=== PATIENT | female | born 1970 | race Caucasian/White ===

== ENCOUNTER 2021-03-05 23:00 | Emergency (ER) | payer MEDICAID, SELFPAY ==
--- NOTE | ~2021-03-05 | CT_ITS ---
EXAMINATION: CT ABDOMEN AND PELVIS WITHOUT CONTRAST CLINICAL INFORMATION: Bilateral flank pain. Hematuria. COMPARISON: None TECHNIQUE: Multidetector volumetric imaging was performed from the superior aspect of the liver through the pubic symphysis. Sagittal and coronal reformatted images were obtained on the technologist's workstation. This CT examination was performed using dose optimization techniques as appropriate, variously including the following: *Automated exposure control *Adjustment of mA and/or kV according to patient size (this includes techniques or standardized protocols for targeted exams where dose is matched to indication/reason for exam; i.e. extremities or head) *Use of iterative reconstruction technique DLP: 614 mGy-cm FINDINGS: LUNG BASES: The visualized lung bases are unremarkable. LIVER, GALLBLADDER, AND BILIARY TREE: The liver is normal in size, shape, and attenuation. No focal hepatic lesion or biliary ductal dilatation is present. Cholecystectomy. PANCREAS: Unremarkable. SPLEEN: Unremarkable. ADRENAL GLANDS: Unremarkable. KIDNEYS AND URETERS: The kidneys are normal in size, shape, and attenuation. No hydronephrosis, hydroureter, or calculi seen. No perinephric stranding. BLADDER: Unremarkable. GASTROINTESTINAL TRACT: Normally distended stomach without wall thickening. Radiopaque density along the greater curvature. Normal caliber small bowel. There is no obstruction. No colonic wall thickening or acute inflammatory change. No free air or free fluid. ABDOMINAL WALL: No significant hernia is appreciated. LYMPH NODES: Normal. VASCULAR: Unremarkable. PELVIC VISCERA: The uterus and adnexa are unremarkable. OSSEOUS STRUCTURES: No acute or suspicious osseous abnormality. Posterior fusion at L5-S1. CT/CT abdomen pelvis wo con IMPRESSION: No acute finding of the abdomen or pelvis. No acute inflammatory change. No hydronephrosis or nephrolithiasis.
[2021-03-05 23:07] VITALS: BP 131/67; PULSE 84; RESP 18; TEMP 37; O2SAT 100; BMI 25.0
[2021-03-05 23:34] LABS: Appearance Urine CLEAR; Color Urine YELLOW; Glucose Urine UA NEG (NEG); Leukocyte Esterase Urine NEG (NEG); Nitrite Urine NEG (NEG); Specific Gravity - Urine 1.015 (1.005-1.025); UACC Culture Trigger NO; Urine Blood NEG (NEG); Urine Ketones NEG (NEG); Urine Protein NEG (NEG-TRACE)
[2021-03-06] VITALS (8 sets, daily range): BP systolic 113–125; BP diastolic 61–75; PULSE 60–70; RESP 16–18; O2SAT 100
--- NOTE | 2021-03-06 00:38 | ED_ITS ---
HPI - General Adult General Chief complaint: Back Pain/Injury Stated complaint: Flank pain Time Seen by Provider: 03/06/21 00:20 Source: patient and family ( , Bakari) Mode of arrival: ambulatory Limitations: no limitations History of Present Illness HPI narrative: 50-year-old female who presents emergency department for evaluation of lower back pain and lower abdominal pain x2 weeks. The patient has a history of chronic back pain and states that she had an L4-L5 disc surgery approximately 4 years prior. Since that time she has had persistent back pain and has been in pain management. She states she was taking morphine 15 mg twice a day is being weaned off morphine by her pain management clinic. She states that over the past 2 weeks she has had increased lower back pain. She states the pain got suddenly worse 2 weeks prior, she denies any injury. She states she has an intermittent throbbing lower back pain which is 9/10 at its worst, the pain is worse with movement. She states that she noted an episode of bloody urine 1 week prior and 2 days prior. She denied frequency urgency or dysuria. She denied fever or chills. She has had associated nausea with her pain but denied any vomiting. The patient states the pain get worse this evening and was 9 of 10, therefore she came to the emergency department for evaluation. Related Data Allergies Allergy/AdvReac Type Severity Reaction Status Date / Time No Known Allergies Allergy Verified 03/05/21 23:06 [No Known Allergies*] Review of Systems Review of Systems: Yes all other systems are reviewed and are negative [facility] Past Medical History [facility] Narrative: Past medical history: Chronic back pain. Past surgical history: Cholecystectomy, L4-L5 disc surgery 4 years prior. Social history: She denies tobacco use, she occasionally drinks alcohol. She denies drug use. Medical History (Updated 03/06/21 @ 02:40 by Domenico Hughes MD) Kidney stone Scoliosis Spinal stenosis Surgical History (Updated 03/05/21 @ 23:08 by Karine Dacosta) History of cholecystectomy Social History Social History Patient Tobacco Use Status: Former Tobacco user Use of substances other than those prescribed or required for medical reasons: No Advance Directives: No Advance Directives Information Provided: No Physical Exam Vital Signs: Vital Signs: Last Vital Signs Temp 98.6 F 03/05/21 23:07 Pulse 61 03/06/21 02:00 Resp 16 03/06/21 02:08 BP 118/65 03/06/21 02:00 Pulse Ox 100 03/06/21 02:00 Body Mass Index 25.0 Const: General: cooperative and healthy appearing Orientat ion/consciousness: oriented to person and oriented to place Limitations: no limitations HENMT: Head: Yes normal to inspection, Yes normocephalic and Yes atraumatic Ears: external ears normal General nose exam: Normal external nose present Face and sinus: Yes normal facial exam Mouth: Normal oral and palatal mucosa present Throat: Yes posterior oropharynx normal Eyes: Periorbital: periorbital findings normal Eyelids: Yes eyelids normal Conjunctivae: conjunctivae normal Sclerae: sclerae normal Corneas: corneas normal Pupils: Equal, round and reactive pupils present Direct Ophthalmoscopy: normal light reflex Neck: Neck: Yes full ROM, Yes no lymphadenopathy, Yes no meningeal signs, Yes trachea midline and Yes supple Chest: Chest palpation & inspection: normal inspection of the chest and normal palpation of entire chest wall Resp: Effort & Inspection: normal respiratory effort and able to speak in complete sentences Auscultation: clear to auscultation bilaterally Cardio: Rate: regular rate Rhythm: regular rhythm Heart sounds: S1 normal heart sound present, S2 normal heart sound present and no murmurs GI: Inspection: Yes normal to inspection Palpation (GI): Soft to palpation, Tenderness to palpation present (GI) in the LUQ ( moderate) and in the RUQ ( moderate), no guarding, not rigid and No hepatosplenomegaly present Back/Spine/Pelvis: Other: Patient has tenderness with palpation of her lower thoracic to her lumbar spine, she also has tenderness with palpation of the paraspinal muscles in these areas. There is no erythema, increased warmth or soft tissue swelling noted of the patient's back. Skin: Lesions: no lesions Rashes: no rashes Wounds: no wounds Neuro: General: oriented to person, oriented to place and no meningeal signs Cranial nerves: Yes CN's II-XII intact bilaterally and Yes Equal, round and reactive pupils present Cognition (Neuro): normal cognition Motor exam (neuro): 5/5 motor strength present throughout Extrem: General: Yes normal to inspection and Yes full ROM Psych: Appearance: well kempt Mental Status: mental status grossly normal Speech and movement: Normal speech and movement present Affect: normal affect Attitude: cooperative Thought process: Normal thought process present Course Course Course Narrative: 50-year-old female with a history of chronic lower back pain with an L4-L5 disc surgery 4 years prior, a pain management and is being weaned off her morphine, who presents to the emergency department for 2 weeks of increased lower back pain, hematuria 1 week prior and 2 days prior. Vital signs were normal.Physical examination revealed tenderness with palpation of her lower thoracic and lumbar spine with tenderness with palpation of the paraspinal muscles in these areas as well. I did order laboratory evaluation to include a CBC, CMP, lipase, urinalysis , urine and CT scan of the abdomen pelvis without IV contrast. Patient will be treated with morphine 4 mg IV and normal saline x1 L. 0236: The patient required 2 more doses of morphine 4 mg IV to help relieve her pain. The patient's laboratory evaluation was unremarkable. CT scan of the abdomen pelvis did not reveal a clear cause for pain. I did discuss this with the patient. Patient's pain is most likely secondary to her chronic back pain and the fact that she is being tapered off her morphine. The patient was advised to follow-up with her pain management clinic for further treatment. The patient was given verbal and printed instructions prior to discharge. The patient was advised to follow-up with their PCP in 2 days and to return to the emergency department if their symptoms get worse or if they develop any new symptoms that are concerning to them Medical Decision Making Lab Data Result diagrams: 03/06/21 01:18 03/06/21 01:18 Labs: Lab Results 03/05/21 03/06/21 03/06/21 Range/Units 23:22 01:18 01:18 WBC 8.9 (4.8-10.8) X10*3/uL RBC 4.35 (4.20-5.50) X10*6/uL Hgb 11.1 L (12.0-16.0) g/dl Hct 36.6 L (37-47) % MCV 84.1 (80-98) fL MCH 25.5 L (27.0-33.0) pg MCHC 30.3 L (31.0-35.0) g/dl RDW 19.1 H (11.0-16.0) % Plt Count 252 (160-400) X10*3/uL MPV 11.7 (9.4-12.3) fL Immature Gran % (Auto) 0.3 (0.0-0.4) % Neut % (Auto) 65.6 (45-73) % Lymph % (Auto) 24.2 (20-40) % Sunflower % (Auto) 6.2 (2-11) % Eos % (Auto) 2.7 (0-4) % Baso % (Auto) 1.0 (0-2) % Lymph # (Auto) 2.1 (1.2-4.9) X10*3/uL Sunflower # (Auto) 0.6 (0.1-1.2) X10*3/uL Eos # (Auto) 0.2 (0.0-0.4) X10*3/uL Baso # (Auto) 0.1 (0.0-0.2) X10*3/uL Abs Immat Gran (auto) 0.03 (0.00-0.03) X10*3/uL Absolute Neuts (auto) 5.8 (2.0-8.3) X10*3/uL Absolute Nucleated RBC 0.000 (0.0-0.012) X10*3/uL Nucleated RBC % (auto) 0.0 (0.0-0.2) /100WBC Sodium 140 (135-145) mmol/L Potassium 4.0 (3.3-5.1) mmol/L Chloride 109 H (96-108) mmol/L Carbon Dioxide 22 (22-29) mmol/L Anion Gap 13 (12-20) BUN 6 L (9-16) mg/dL Creatinine 0.70 (0.5-1.4) mg/dL Estim Creat Clear Calc 95.5 Estimated GFR > 60 Random Glucose 97 (60-115) mg/dL Calcium 9.3 (8.4-10.2) mg/dL Total Bilirubin 0.4 (0.0-1.0) mg/dL AST 10 (5-31) U/L ALT < 6 (0-31) U/L Alkaline Phosphatase 75 (39-117) U/L Total Protein 7.1 (6.5-8.0) g/dL Albumin 3.9 (3.5-5.0) g/dL Lipase 39 (8-78) U/L Urine Color YELLOW Urine Appearance CLEAR Urine pH 6.0 (5.0-8.0) Ur Specific Wana 1.015 (1.005-1.025) Urine Protein NEG (NEG-TRACE) MG/DL Urine Glucose (UA) NEG (NEG) MG/DL Urine Ketones NEG (NEG) MG/DL Urine Blood NEG (NEG) Urine Nitrite NEG (NEG) Ur Leukocyte Esterase NEG (NEG) Discharge Plan Discharge Clinical Impression: Abdominal pain, acute Acute back pain Qualifiers: Back pain location: low back pain Back pain laterality: bilateral Sciatica presence: without sciatica Qualified Code(s): M54.5 - Low back pain Patient Disposition: Home, Self-Care Instructions: Acute Low Back Pain (ED) Additional Instructions: Your laboratory evaluation included a CBC, comprehensive metabolic panel, lipase and urinalysis. All of these tests were normal which is reassuring. The CT scan of your abdomen pelvis without IV contrast revealed no evidence for kidney stones, swelling of your kidney or ureter or other causes for your abdominal pain and back pain. At this time, I believe that your back pain and abdominal pain are caused by your chronic lower back condition and the fact that your being tapered off morphine may also be contributing to your increased pain. Take ibuprofen 200 mg pills, 3 pills every 6 hours as needed for pain. Take Tylenol (acetaminophen) 500 mg pills, 2 pills every 4 to 6 hours as needed for pain. Follow-up with your doctor in 2 days. Please return to the emergency department if your symptoms get worse or if you develop any symptoms that are concerning to you.
[2021-03-06 01:21] LABS: MANUAL DIFF FLAG NO
[2021-03-06] MEDS: 0.9 % Sodium Chloride 1,000 ML 999 ML IV (01:27)
[2021-03-06] MEDS: Morphine Sulfate 4 MG/ML CARTRIDGE IVPUSH ×3 (01:27→03:02)
[2021-03-06 01:31] LABS: Basophils Absolute Auto 0.1 X10*3/uL (0.0-0.2); Eosinophils Absolute Auto 0.2 X10*3/uL (0.0-0.4); Eosinophils Percent Auto 2.7 % (0-4); Hematocrit 36.6 % (37-47); Hemoglobin 11.1 g/dl (12.0-16.0); Imm Gran Abs Auto 0.03 X10*3/uL (0.00-0.03); Imm Gran Pct Auto 0.3 % (0.0-0.4); Lymphocytes Absolute Auto 2.1 X10*3/uL (1.2-4.9); Lymphocytes Percent Auto 24.2 % (20-40); Mean Corpuscular HGB Conc 30.3 g/dl (31.0-35.0); Mean Corpuscular Hemoglobin 25.5 pg (27.0-33.0); Mean Corpuscular Volume 84.1 fL (80-98); Mean Platelet Volume 11.7 fL (9.4-12.3); Monocytes Absolute Auto 0.6 X10*3/uL (0.1-1.2); Monocytes Percent Auto 6.2 % (2-11); Neutrophils Absolute Auto 5.8 X10*3/uL (2.0-8.3); Neutrophils Percent Auto 65.6 % (45-73); Platelet Count 252 X10*3/uL (160-400); Red Blood Count 4.35 X10*6/uL (4.20-5.50); Red Cell Distribution Width 19.1 % (11.0-16.0); White Blood Count 8.9 X10*3/uL (4.8-10.8)
[2021-03-06 01:50] LABS: Alanine Aminotransferase < 6 U/L (0-31); Albumin Level 3.9 g/dL (3.5-5.0); Alkaline Phosphatase 75 U/L (39-117); Anion Gap 13 (12-20); Aspartate Amino Transferase 10 U/L (5-31); Bilirubin Total 0.4 mg/dL (0.0-1.0); Blood Urea Nitrogen 6 mg/dL (9-16); Calcium 9.3 mg/dL (8.4-10.2); Carbon Dioxide 22 mmol/L (22-29); Chloride 109 mmol/L (96-108); Creatinine Clr Calc Pharmacy 95.5; Estimated Glomerular Filt Rate > 60; Glucose Random 97 mg/dL (60-115); Lipase 39 U/L (8-78); Sodium 140 mmol/L (135-145); Total Protein 7.1 g/dL (6.5-8.0)
== END 2021-03-06 03:20 | disposition home or self-care (01) ==
PROVIDERS: Emergency Provider Emergency Medicine Emergency Medical Services
DX: M54.5 Low back pain (principal); R10.30 Lower abdominal pain, unspecified; G89.29 Other chronic pain; M54.9 Dorsalgia, unspecified; Z79.891 Long term (current) use of opiate analgesic
CPT/HCPCS: 36415; 74176; 80053; 81003; 83690; 85025; 96361; 96374; 96376; 99284; J2270

== ENCOUNTER 2023-05-22 12:46 | Emergency (ER) | payer MEDICAID, SELFPAY ==
[2023-05-22 13:07] VITALS: BP 130/85; PULSE 105; RESP 18; TEMP 36.6; O2SAT 100; BMI 34.5
--- NOTE | 2023-05-22 13:10 | ED_ITS ---
HPI - General Adult General Chief complaint: Dental/Oral Stated complaint: Dental Abscess Time Seen by Provider: 05/22/23 14:30 Source: patient and family () Mode of arrival: ambulatory Limitations: no limitations History of Present Illness HPI narrative: Patient is a 52-year-old female who is currently working with oral surgeon to have multiple teeth extracted presenting to the emergency department with complaint of left upper jaw pain after cracking a tooth while eating this morning. Patient states that she completed a course of Augmentin 2 days ago. Denies any redness or swelling to gums, denies any drainage. Denies any fevers. States that she has an appointment with oral surgeon on for additional tooth extractions. States that she took naproxen and Tylenol this morning but is out of her medication for severe pain. MD complaint: Dental pain Onset (ago): hour(s) Location: mouth Radiation: other (Left ear) Severity: severe Severity scale (1-10): >10 Quality: aching Pain Consistency: constant Relieving factors: none Exacerbating factors: eating Associated symptoms: denies other symptoms Treatments prior to arrival: NSAID and other (Tylenol) Related Data Previous Rx's Medication Instructions Recorded oxycodone 5 mg tablet 5 mg PO Q8H PRN pain #6 tabs 05/22/23 Allergies Allergy/AdvReac Type Severity Reaction Status Date / Time No Known Allergies Allergy Verified 05/22/23 13:07 [No Known Allergies*] Review of Systems 2 Review of Systems: As per HPI. Yes all other systems are reviewed and are negative Constitutional: Constitutional: Reports as per HPI [facility] Past Medical History Medical History (Updated 05/22/23 @ 14:53 by Lissette Galvez NP) Spinal stenosis Scoliosis Kidney stone Surgical History (Updated 03/05/21 @ 23:08 by Karine Dacosta) History of cholecystectomy Social History Social History Patient Tobacco Use Status: Former Tobacco user Advance Directives: No Advance Directives Information Provided: Yes Physical Exam ED Vital Signs: Vital Signs - 24 hr 05/22/23 13:07 Temperature 98 F Pulse Rate 105 H Respiratory Rate 18 Blood Pressure 130/85 Pulse Oximetry 100 Oxygen Delivery Method Room Air BMI result Body Mass Index 34.5 Vital signs have been reviewed and appear to be correct. Blood pressure normal. Heart rate slightly tachycardic, likely secondary to pain. Respiratory rate normal. Temperature normal. Oxygen saturation normal. Const General: cooperative, healthy appearing and no acute distress Orientation/consciousness: oriented to person, oriented to place, oriented to time and patient oriented x3 Limitations: no limitations HENMT Head: Yes normocephalic and Yes atraumatic Ears: external ears normal General nose exam: Normal external nose present Face and sinus: Yes face symmetric Mouth: oropharynx normal and moist mucous membranes Teeth and gingiva: gingiva normal, abnormal tooth and associated gingiva upper left tender, enamel fractured and dentin fractured; without any associated gingival edema and without associated gingival fluctuance, caries and poor dentition Teeth image: 2 1. fractured, no gingival erythema or fluctuance Throat: Yes posterior oropharynx normal, Yes tonsils normal and Yes uvula midline Eyes Pupils: Equal, round and reactive pupils present Neck Neck: Yes normal visual inspection, Yes no lymphadenopathy and Yes supple Resp Effort & Inspection: normal respiratory effort and able to speak in complete sentences Auscultation: clear to auscultation bilaterally Cardio Rate: regular rate Rhythm: regular rhythm Heart sounds: S1 normal heart sound present and S2 normal heart sound present GI Palpation (GI): Soft to palpation and nontender Auscultation: normoactive bowel sounds General: Yes no CVA tenderness Back/Spine/Pelvis Back: no CVA tenderness Skin General skin exam: elasticity normal and turgor normal Neuro General: oriented to person, oriented to place, oriented to time, patient oriented x3, moves all extremities, no focal motor deficits and CN's II-XI intact bilaterally Cranial nerves: Yes Equal, round and reactive pupils present Cognition (Neuro): normal cognition Extrem General: Yes full ROM, Yes no pedal edema and Yes no calf tenderness Psych Mental Status: mental status grossly normal Affect: normal affect Thought process: Normal thought process present Course Course Course Narrative: This is an RME: Additional HPI, ROS, PE not included below will be deferred to primary provider. 52 y o female presents for dental pain just finished . Is being followed by oral surgeon is in the process of getting teeth removed since they seem to be falling out on their own per paitnet. [place] [facility] [place]s) Reevaluation #1: Addendum: Following discharge, patient returned to the emergency department stating that she had an issue feeling her prescription and is requesting that this provider speak to the pharmacist. This provider spoke with the pharmacist at [facility] via telephone who reports that patient has had 5 opiate prescriptions filled in the last month in multiple states by multiple providers including [place] and [place]. This is in addition to prescriptions viewed on the [employer] that patient had filled in [place] and [place]. After discussion with pharmacist, this provider is in agreement with him declining to fill the prescription. Patient notified of this and states that she will seek care elsewhere. Time: 16:57 Medical Decision Making Medical Decision Making MDM Narrative: Patient is a 52-year-old female who is currently working with oral surgeon to have multiple teeth extracted presenting to the emergency department with complaint of left upper jaw pain after cracking a tooth while eating this morning. On exam patient is awake, A+Ox3, VS WNL, afebrile, normal neurological exam without focal deficits, physical exam findings as above. Given reported symptoms and physical exam findings, initial differential includes dental pain, dental infection, dental abscess. Review of [employer] shows several prescriptions for opioid pain medication from several different providers. Patient states that she is going to the [facility], and that the dentists there have refused to prescribe her any opioid pain medication, and referred her to the ED. Prescriptions have been from providers in [place], [place] and [place] and patient resides in [place]. Will provide patient with 2-day supply of oxycodone and discussed with patient that she should discuss further pain management with her dentist. Return precautions discussed at bedside. Patient verbalized understanding of and agreement with plan. Differential Diagnosis Differential Diagnoses: The differential diagnosis associated with the presentation includes As per MDM. Independent Historian Clinical information obtained from an independent historian. History obtained from or confirmed by: Spouse External Record Review External record reviewed: Inpatient record, Office record, Outpatient record and Other ([employer]) Prescription Management I considered prescription management with: Pain Medication Discharge Plan Discharge Clinical Impression: Toothache, Dental caries, Fracture of tooth Patient Disposition: Home, Self-Care Instructions: Toothache (ED) Additional Instructions: You were evaluated in the emergency department for today for dental pain. Your physical examination does not show evidence of an acute infection. You are being prescribed a 2 day supply of opioid pain medication. You should continue to use Tylenol and ibuprofen per package directions for pain control. Please follow-up with your oral surgeon for ongoing pain management. Return to the emergency department if you develop worsening pain, swelling to your comes, drainage, fever 100.4? F or greater, or any other concerning symptoms. Prescriptions: New oxycodone 5 mg tablet 5 mg PO Q8H PRN (Reason: pain) Qty: 6 0RF Rx Instructions: Partial Fill upon patient request. Interventions: ED Discharge Assessment Last Done: 05/22/23 15:06 Discharge Date/Time: 05/22/23 15:07
== END 2023-05-22 15:07 | disposition home or self-care (01) ==
PROVIDERS: Emergency Provider Emergency Medicine Emergency Medical Services
DX: S02.5XXA Fracture of tooth (traumatic), initial encounter for closed fracture (principal); K02.9 Dental caries, unspecified; X58.XXXA Exposure to other specified factors, initial encounter; Y93.9 Activity, unspecified; Y92.9 Unspecified place or not applicable; Y99.9 Unspecified external cause status
CPT/HCPCS: 99282; 99283